=== PATIENT | female | born 1950 | race Caucasian/White ===

== ENCOUNTER 2022-02-27 07:54 | Observation (INO) | payer MEDICARE, BC, SELFPAY ==
[2022-02-27 08:00] VITALS: BP 100/72; PULSE 58; RESP 16; TEMP 36.1; O2SAT 97
--- NOTE | 2022-02-27 08:50 | DI.ECHO.S_ITS ---
[facility]---------+ [facility] +---------+ : : [address] : [address] : : : : [id number] : : : : Phone: [phone]+ Echocardiogram Report + + :Name: EMMETT BRIONES Study Date: 02/27/2022 Height: 60 in : :[facility] ReadingLocation: Weight: 240 lb : : Gender: Female BSA: 2.0 m2 : :: 1950 Age: 71 yrs BP: 108/72 mmHg: :Reason For Study: DYSPNEA ON EXERTION, CHG : :Ordering Physician: NATALY, : :MAYRA GOODMAN Performed By: Nicol Meneses : :Referring: MAYRA INGRAM MD : + + Interpretation Summary The ejection fraction is estimated to be 60-65%. Diastolic parameters suggest probable normal left ventricular diastolic function and normal filling pressures. The right ventricle is normal in size and function. There is mild mitral regurgitation. There is mild to moderate tricuspid regurgitation. PASP is approximately 35 to 40 mmHg. Procedure: A two-dimensional transthoracic echocardiogram with color flow and Doppler was performed. The study quality was technically adequate. There is no prior echocardiogram noted for this patient. The patient was in sinus bradycardia with heart rates between 50-62 bpm during the exam. Left Ventricle: The left ventricle is normal in size and wall thickness. The ejection fraction is estimated to be 60-65%. Diastolic parameters suggest probable normal left ventricular diastolic function and normal filling pressures. Right Ventricle: The right ventricle is normal in size and function. Atria: The left atrial size is normal. Right atrial size is normal. There is no Doppler evidence for an interatrial shunt. Mitral Valve: The mitral valve leaflets are mildly calcified. There is mild mitral annular calcification. There is mild mitral regurgitation. Aortic Valve: The aortic valve is not well visualized. There is no aortic valve stenosis. There is trace aortic regurgitation. Tricuspid Valve: The tricuspid valve leaflets are thin and pliable. There is mild to moderate tricuspid regurgitation. PASP is approximately 35 to 40 mmHg. Pulmonic Valve: The pulmonic valve is not well seen, but is grossly normal. There is trace pulmonic regurgitation. Great Vessels: The aortic root is normal size. The dimensions of the ascending aorta are normal. The IVC is dilated (diameter is greater than 2.1 cm) and it collapses less than 50% with a sniff. This suggests a high right atrial pressure of 15 mm Hg. Pericardium/ Pleura There is no pericardial effusion. There is no pleural effusion. MMode/2D Measurements & Calculations LVIDd: 5.1 cm LVOT diam: 2.0 cm LVIDs: 3.3 cm Ao root diam: 3.1 cm FS: 34.3 % asc Aorta Diam: 3.6 cm IVSd: 0.65 cm Ao Arch Diam (Prox Trans): 3.2 cm LVPWd: 0.70 cm LV mena. diameter/BSA (cm/m^2): 2.5 LV sys. diameter/BSA (cm/m^2): 1.7 LA A2 area: 22.3 cm2 RA long axis: 5.3 cm LA A4 area: 17.3 cm2 RA area: 17.7 cm2 LA length (vol): 5.7 cm RA vol: 50.1 ml LA vol: 57.5 ml RA : 24.8 ml/m2 LA vol index: 28.5 ml/m2 IVC diam: 2.4 cm RVD1 (basal): 4.1 cm RVD2 (mid): 2.9 cm TAPSE: 2.2 cm Doppler Measurements & Calculations Ao V2 max: 155.8 cm/sec LVOT Max Bang: 100.0 cm/sec Ao V2 mean: 105.8 cm/sec LV V1 max P.0 mmHg Ao max P.7 mmHg LV V1 VTI: 24.0 cm Ao mean P.1 mmHg DON(I,D): 1.8 cm2 Ao V2 VTI: 39.8 cm DON(V,D): 1.9 cm2 sev ratio: 0.60 DON indexed to BSA (cm^2/m^2): 0.91 MV E max bang: 114.8 cm/sec TR max bang: 253.1 cm/sec MV A max bang: 96.9 cm/sec TR max P.6 mmHg MV E/A: 1.2 PA V2 max: 106.2 cm/sec Med Peak E' Bang: 9.3 cm/sec PA V2 mean: 74.0 cm/sec E/E' med: 12.3 PA mean P.5 mmHg Lat Peak E' Bang: 7.6 cm/sec E/E' lat: 15.1 E/e' average: 13.7 MV dec time: 0.27 sec SVLVOT): 72.9 ml Reading Physician:12:20 PM
[2022-02-27 09:23] LABS: Magnesium 1.6 mg/dL (1.6-2.3)
[2022-02-27 09:36] LABS: Troponin I < 0.012 ng/mL (0.01-0.034)
[2022-02-27 11:11] VITALS: BMI 40.4
[2022-02-27 12:00] VITALS: BP 155/87; PULSE 55; RESP 18; TEMP 35.9; O2SAT 95
--- NOTE | 2022-02-27 12:39 | PC.NURSE ---
Addendum entered by Sandrita Antunez R.N. 02/27/22 15:31: Note written below is wrong. Patient is not discharging. Please ignore. Patients medication list is updated and current. She has a butran patch on her upper back that is 7.5mcg/hr, this is good until tuesday and will then be changed. Given tramadol for complaints of soar legs, this has been helpful. She is resting comfortably and a one person stand by assist to the bathroom. Tele in place. Addendum entered by Sandrita Antunez R.N. 02/27/22 14:31: Patient discharged to home, iv taken out and picked patient up. Original Note: Assess- Patient is alert and oriented x3, she denies pain. Patient is on room air and states that she gets sob only when up moving around and ambulating and then lying back down. Her lung sounds are clear, and she is on room air. Resting comfortably and ate well at lunch.
[2022-02-27] MEDS: SERTRALINE 50 MG TABLET 100 MG PO (13:23)
[2022-02-27] MEDS: TRAMADOL 50 MG TABLET PO (13:23)
--- NOTE | 2022-02-27 14:11 | P.HP_ITS ---
History of Present Illness History of Present Illness Date Patient Seen: 02/27/22 Chief complaint: Dyspnea on exertion, early CHF Narrative: Patient is a 71-year-old female with underlying diabetes mellitus type 2, on oral glipizide, asthma, chronic anticoagulation for remote DVT/PE, atrial fibrillation, obstructive sleep apnea which she reports is mild and does not require CPAP, hypertension, GERD, anxiety and depression presented to an outside hospital emergency department yesterday complaining of worsening shortness of breaths. The patient states that over the past several weeks she has had progressive difficulty with dyspnea on exertion. Specifically she reports that she will be able to walk around throughout the house and perform a task but when she gets back and sits down she becomes significantly short of breath. She will get some pressure in the chest but no chest pain. No associated lightheadedness, nausea, vomiting. She denies any previous history of cardiac issues. She reports a history of asthma and note she did have pulmonary function testing performed approximately 1 year ago. She cannot tell me the results of that. In the records that were sent over from [facility], there is report of pulmonary fibrosis. Patient denies any knowledge of that diagnosis. She also states she was told by the outside hospital she has congestive heart failure but does not carry a prior diagnosis. She has not had any significant fever, chills, cough, or other respiratory symptoms. She did have COVID in the spring of 2020. She has been vaccinated x2 with Moderna, but no boosters. She has not had any residual symptoms related to her prior COVID infection. She does have cardiac risk factors inclusive of diabetes mellitus type 2, hypertension, and former tobacco abuse as well as obesity. She has recently have been attempting to lose weight and notes she has had 16 lb intentional weight loss. She does report a bit better than she did in the emergency department yesterday. There she received breathing treatments and dexamethasone. She reports she has an albuterol inhaler at home but does not use it as it is ineffective for her symptoms. Patient History Medical History (Updated 02/27/22 @ 09:44 by Sandrita Antunez RN) Afib Asthma Bradycardia FH: total knee replacement HTN (hypertension) Comment: Atrial fibrillation Chronic anticoagulation with warfarin Remote history of right lower extremity DVT and PE, unprovoked by verbal report Obstructive sleep apnea and not prescribed CPAP Hypertension GERD Anxiety/depression Asthma Class 3 obesity As noted she specifically denies any cardiac history or known diagnosis of pulmonary fibrosis Family & Social History Family History (Updated 02/27/22 @ 14:18 by Rosalva York MD) Mother Congestive heart failure Diabetes mellitus Father Suicide Son Suicide Social History: household members family Prior Living Arrangements House Patient reports tobacco use for 2 years, 2 and half packs of cigarettes daily. She does not drink any alcohol. She lives in [place] with her daughter and son-in-law. Safety & Behavioral: Feels Safe in Current Yes Environment Been Physically Hurt or No Threatened By a Person Tobacco & Substance use: Tobacco type cigars Smoking Status Former smoker alcohol intake never Substance Use Type does not use Meds Home Medications and Allergies Home Medications Medication Instructions Recorded Confirmed Type albuterol sulfate 90 mcg/actuation 2 puff inhalation Q6H PRN Wheezing 02/27/22 02/27/22 History aerosol inhaler aspirin 81 mg tablet,delayed 81 mg PO DAILY 02/27/22 02/27/22 History release buprenorphine 7.5 mcg/hour weekly 1 patch transdermal QWEEK 02/27/22 02/27/22 History transdermal patch (Butrans) cholecalciferol (vitamin D3) 50 50 mcg PO DAILY 02/27/22 02/27/22 History mcg (2,000 unit) capsule clobetasol 0.05 % topical cream 1 applic topical BID 02/27/22 02/27/22 History ferrous sulfate 325 mg (65 mg 325 mg PO DAILY 02/27/22 02/27/22 History iron) tablet gabapentin 300 mg tablet 300 mg PO DAILY 02/27/22 02/27/22 History gabapentin 600 mg tablet 600 mg PO BID 02/27/22 02/27/22 History glipizide 5 mg tablet, extended 5 mg PO DAILY 02/27/22 02/27/22 History release 24 hr montelukast 10 mg tablet 15 mg PO DAILY 02/27/22 02/27/22 History nitroglycerin 0.4 mg sublingual 0.4 mg sublingual Q5M PRN angina 02/27/22 02/27/22 History tablet pantoprazole 40 mg tablet,delayed 40 mg PO BID 02/27/22 02/27/22 History release rosuvastatin 20 mg tablet (Crestor) 20 mg PO DAILY 02/27/22 02/27/22 History sertraline 100 mg tablet 100 mg PO DAILY 02/27/22 02/27/22 History sotalol 80 mg tablet 40 mg PO BID 02/27/22 02/27/22 History tramadol 50 mg tablet 50 mg PO DAILY PRN Pain, Moderate 02/27/22 02/27/22 History trazodone 50 mg tablet 75 mg PO BEDTIME 02/27/22 02/27/22 History warfarin 2.5 mg tablet 2.5 mg PO DAILY 02/27/22 02/27/22 History Allergies Allergy/AdvReac Type Severity Reaction Status Date / Time tolmetin AdvReac Verified 02/27/22 12:47 Review of Systems Review of Systems Narrative: All other systems were reviewed negative Exam Vital Signs (past 8 hours): - 02/27/22 08:00 02/27/22 12:00 Temperature 97.0 F L 96.6 F L Pulse Rate 58 L 55 L Respiratory Rate 16 18 Blood Pressure 100/72 155/87 H Pulse Oximetry 97 95 Oxygen Flow Rate 0 0 Oxygen Flow Rate 0 Narrative Exam Narrative: GEN: Middle-aged female, pleasant, Alert and oriented x3, no acute distress HEENT: Normocephalic, face symmetric, pupils equal round reactive to light, extraocular movements intact, sclerae anicteric, conjunctiva clear, nares patent, oropharynx reveals an intact soft and hard palate with moist mucous membranes, dentition is fair NECK: Supple, no lymphadenopathy, thyroid without enlargement or nodularity, carotids no bruits CHEST: Respiratory excursions symmetric, clear to auscultation bilaterally CV: Regular rate and rhythm, no murmurs, rubs, gallops, PMI cannot be palpated ABD: Soft, obese, nontender, nondistended, bowel sounds present in all 4 quadrants, body habitus limits exam EXTR: Warm, well perfused, no clubbing/cyanosis/edema SKIN: Warm and dry, without rash NEURO: Alert and oriented x3, cranial nerves 2 through 12 are intact and symmetric bilaterally, motor strength 5/5 throughout, sensation intact throughout PSYCH: Mood and affect is within normal limits, judgment and insight are appropriate Objective ECG Impression: Not seen by me, per report from outside hospital, this revealed a sinus bradycardia with no acute ST or T-wave changes Imaging Chest x-ray: Radiologist's impression: Per outside report, x-ray portable was done with no acute cardiopulmonary process. Specifically they did not comment on any of fibrosis or pulmonary edema. Labs Labs: Laboratory Results - last 24 hr 02/27/22 09:07 Magnesium 1.6 Troponin I < 0.012 laboratories performed at outside hospital reveals white blood cell count of 6.2, hemoglobin 13.1, hematocrit 40.8, platelets 230. Sodium was 143, potassium 4.3, chloride 107, bicarb 31, BUN 20, creatinine 1.75, glucose 88. Albumin was 3.3. LFTs were within normal limits with the exception of 1 which was mildly low at 11 it is unclear if it was the AST or ALT as the pH was cut off. Influenza A/B, RSV, COVID were all negative. TSH was normal at 2.64. BNP 807. INR was 3.7. Assessment & Plan Assessment & Plan narrative: 1. Dyspnea on exertion Unclear etiology. Pt reports a history of asthma but not pulmonary fibrosis. CXR was negative, specifically no evidence of fibrosis/CHF. No infiltrate. No wheezing on exam. Pt reports she had PFTs done about a year ago. She is uncertain as to the results. Will get records from [facility] (PFTs, CT if done). Negative dimer, no concern for PE. INR supratherapeutic. If no CT at prior hospital, will obtain one. Additionally, may need a nuclear stress test d/t risk factors for CAD (HTN, Dm2, obesity, former smoker). 2. SOLOMON versus CKD Creatinine 1.75. Unknown baseline. Will follow. Appears euvolemic presently. 3. Supratherapeutic INR in the setting of chronic anticoagulation for remote thromboembolic disease INR 3.7 at outside hospital. Will hold coumadin today. Recheck INR in am. 4. Reported paroxysmal atrial fibrillation She is in sinus rhythm by exam. She is on sotalol on an outpatient basis which is likely indicative of underlying arrhythmia, specifically AFib. Will monitor. 5. Diabetes mellitus type 2, controlled with glipizide Blood sugar was 80 on outside labs. Will not do fingersticks routinely. Will place on controlled carb diet. 6. Hypertension Patient does not have any antihypertensive therapy listed in her home medications. Uncertain if hypertension is an accurate diagnosis or not. Patient tells me she is unsure of what all she takes, what diagnoses she carries. 7. Asthma Patient tells me she did not have asthma as a child. She does have Flovent but states she does not use it regularly. She believes it was prescribed for allergies. Again will attempt to get results from previous pulmonary function testing. 8. Obstructive sleep apnea Patient reports she was told it was mild and she does not require CPAP 9. Class 3 obesity BMI is 40.4. She has been working on weight loss and reports recently decreasing her weight by 16 lb. Code status DNR per patient. She states her daughter will not agree with her decision. However, patient does not feel her life should be extended in the event of a code setting given her many medical issues. Prophylaxis Supratherapeutic INR Disposition Await getting records from [facility]. Patient may need a chest CT and/or nuclear stress test before discharge. Time Spent With Patient Critical Care time: I spent a total of [] minutes of critical care time on this patient's care today; this time is exclusive of procedural time.
[2022-02-27 16:22] VITALS: BP 132/71; PULSE 64; RESP 17; TEMP 36.3; O2SAT 95
[2022-02-27] MEDS: MAGNESIUM CHLORIDE 64 MG TABLET 128 MG PO (16:49)
[2022-02-27 19:00] VITALS: O2SAT 96
[2022-02-27 20:15] VITALS: BP 138/76; PULSE 58; RESP 18; TEMP 36.4; O2SAT 95
[2022-02-27] MEDS: ATORVASTATIN 20 MG TABLET 40 MG PO (20:34)
[2022-02-27] MEDS: SOTALOL 80 MG TABLET 40 MG PO (20:35)
[2022-02-27] MEDS: diphenhydrAMINE 25 MG TABLET 50 MG PO (20:36)
[2022-02-27] MEDS: PANTOPRAZOLE DR 40 MG TABLET PO (20:36)
[2022-02-27] MEDS: GABAPENTIN 600 MG TABLET PO (20:36)
[2022-02-27] MEDS: TRAZODONE 50 MG TABLET 75 MG PO (20:37)
[2022-02-28 04:00] VITALS: BP 160/88; PULSE 47; RESP 16; TEMP 36.2; O2SAT 98
[2022-02-28 07:37] LABS: Add Manual Diff / Slide Review NO; Basophils Absolute Auto 0 /uL (0-100); Basophils Percent Auto 0.2 % (0-2); Eosinophils Absolute Auto 100 /uL (0-450); Eosinophils Percent Auto 0.7 % (2-4); Hematocrit 37.6 % (36-46); Hemoglobin 12.3 g/dL (12.0-16.0); Lymphocytes Absolute Auto 2200 /uL (1100-4500); Mean Corpuscular HGB Conc 32.8 % (30-36); Mean Corpuscular Hemoglobin 29.5 PG (26-34); Mean Corpuscular Volume 90.1 fL (80-100); Monocytes Absolute Auto 400 /uL (0-900); Monocytes Percent Auto 5.9 % (3-14); Neutrophils Absolute Auto 4900 /uL (1500-7000); Neutrophils Percent Auto 64.2 % (50-75); Platelet Count 216 X10^3/uL (150-400); Red Blood Cell Count 4.17 X10^6/uL (4.0-5.2); White Blood Cell Count 7.6 X10^3/uL (4.5-11.0)
[2022-02-28 07:43] LABS: INR 3.7 (0.9-1.3); Prothrombin Time 43.1 SECONDS (10.1-12.7)
[2022-02-28 07:48] LABS: Appearance Urine UA CLEAR; Bilirubin Urine UA NEGATIVE (NEGATIVE); Color Urine UA YELLOW; Glucose Urine UA NEGATIVE (Negative); Ketones Urine UA NEGATIVE (NEGATIVE); Leukocyte Esterase Urine UA 2+ (NEGATIVE); Nitrite Urine UA NEGATIVE (Negative); Occult Blood Urine UA 1+ (Negative); Protein Urine UA TRACE (Negative); Urobilinogen Urine UA 0.2 E.U./dL (0.2)
[2022-02-28 07:51] LABS: Alanine Aminotransferase 13 IU/L (<35); Albumin 3.7 g/dL (3.5-5.0); Albumin Globulin Ratio 1.3 (1.0-2.8); Alkaline Phosphatase 56 U/L (38-126); Aspartate Aminotransferase 19 IU/L (14-36); BUN Creatinine Ratio 18.6 (6-22); Bilirubin Total 0.4 mg/dL (0.2-1.3); Blood Urea Nitrogen 27 mg/dL (7-17); Calcium 9.1 mg/dL (8.4-10.2); Carbon Dioxide 30 mmol/L (22-32); Chloride 101 mmol/L (98-107); Cholesterol 145 mg/dL (140-199); Estimated Glomerular Filt Rate 39 mL/min (>60); Globulin 2.8 g/dL (1.7-4.1); Glucose 159 mg/dL (80-110); HDL Cholesterol 46 mg/dL (40-60); HEMOLYSIS < 15 (0-50); LDL Cholesterol Calculated 75 mg/dL (<100); Potassium 3.8 mmol/L (3.4-5.1); Sodium 136 mmol/L (137-145); Total Protein 6.5 g/dL (6.3-8.2); Triglycerides 119 mg/dL (35-150)
[2022-02-28 08:00] VITALS: BP 115/72; PULSE 41; RESP 17; TEMP 36.6; O2SAT 96
[2022-02-28] MEDS: ASPIRIN EC 81 MG TABLET PO (08:12)
[2022-02-28] MEDS: MONTELUKAST 10 MG TABLET 15 MG PO (08:12)
[2022-02-28] MEDS: PANTOPRAZOLE DR 40 MG TABLET PO (08:14)
[2022-02-28] MEDS: GABAPENTIN 600 MG TABLET PO (08:14)
[2022-02-28] MEDS: CHOLECALCIFEROL (VITAMIN D3) 1,000 UNIT TABLET 2000 UNIT PO (08:14)
[2022-02-28] MEDS: FERROUS SULFATE 325 MG TABLET PO (08:14)
[2022-02-28] MEDS: SERTRALINE 50 MG TABLET 100 MG PO (08:14)
[2022-02-28 08:23] LABS: Bacteria Urine Many (>30); Culture Indicated Urine Specimen Cultured; RBC Urine 1-5/HPF (0-5/HPF); Squamous Epithelial Cell Urine 1-5 /HPF (0-5/HPF); WBC Urine 10-30/HPF (0-5/HPF); pH Urine UA 5.5 (4.5-8.0)
[2022-02-28 08:44] LABS: Thyroid Stimulating Hormone 0.677 uIU/mL (0.47-4.68)
[2022-02-28] MEDS: cephALEXin 250 MG CAPSULE 500 MG PO (11:22)
--- NOTE | 2022-02-28 12:14 | PC.NURSE ---
Discharge Note Patient A&O, VSS, RA, no complaints of pain/discomfort. Patient able to ambulate successfully through out unit without shortness of breath. Discharge packet reviewed with patient, all questions/concerns addressed. Prescription for antibiotics given to patient and reminded to fill at preferred pharmacy. PIV/TELE discontinued. Patient able to dress self and pack all belongings. Patient taken down via wheelchair to POV.
--- NOTE | 2022-02-28 15:17 | CM.DANOTE ---
DCP/Assessment: Reviewed chart. Patient is a 71yr old female admitted to I.. with possible CHF. PCP is Dr. Shah. Primary payor is 1)Medicare 2)[facility]. Attempted to meet with patient this afternoon but she has already discharged. RN reports that patient resides with family and was I in ADL's. RN reports patient did not have any d/c planning needs. P: Home today. KJS Discharge Planning/Care Management CM Discharge Assessment Start: 02/28/22 15:11 Freq: Status: Discharge Protocol: Document 02/28/22 15:12 KJS (Rec: 02/28/22 15:17 KJS [id number]) Discharge Planning Assessment Assigned [employer] Technologist JUNIOR Avina Contact Information Jaimee Seay (daughter) ph# [phone] Advance Directives? No History Provided By Patient,Medical Record Prior Living Arrangements House Household Members family Independent with ADL's Yes: Per nursing Is patient alert and oriented? Yes: Per nursing Caregiver for Another No Barriers to Discharge No Discharge Plan Home Transportation Arrangement Family to provide transport. Referrals Initiated None needed Review Status In Process Next Review Type Continued Stay Review
--- NOTE | 2022-02-28 18:55 | P.DS_ITS ---
History of Present Illness History of Present Illness Chief complaint: Dyspnea on exertion, early CHF Narrative: Patient is a 71-year-old female with underlying diabetes mellitus type 2, on oral glipizide, asthma, chronic anticoagulation for remote DVT/PE, atrial fibrillation, obstructive sleep apnea which she reports is mild and does not require CPAP, hypertension, GERD, anxiety and depression presented to an outside hospital emergency department yesterday complaining of worsening shortness of breaths. The patient states that over the past several weeks she has had progressive difficulty with dyspnea on exertion. Specifically she reports that she will be able to walk around throughout the house and perform a task but when she gets back and sits down she becomes significantly short of breath. She will get some pressure in the chest but no chest pain. No associated lightheadedness, nausea, vomiting. She denies any previous history of cardiac issues. She reports a history of asthma and note she did have pulmonary function testing performed approximately 1 year ago. She cannot tell me the res ults of that. In the records that were sent over from [facility], there is report of pulmonary fibrosis. Patient denies any knowledge of that diagnosis. She also states she was told by the outside hospital she has congestive heart failure but does not carry a prior diagnosis. She has not had any significant fever, chills, cough, or other respiratory symptoms. She did have COVID in the spring. She has been vaccinated x2 with Moderna, but no boosters. She has not had any residual symptoms related to her prior COVID infection. She does have cardiac risk factors inclusive of diabetes mellitus type 2, hypertension, and former tobacco abuse as well as obesity. She has recently have been attempting to lose weight and notes she has had 16 lb intentional weight loss. She does report a bit better than she did in the emergency department yesterday. There she received breathing treatments and dexamethasone. She reports she has an albuterol inhaler at home but does not use it as it is ineffective for her symptoms. Discharge Providers Provider Date of admission: 02/27/22 07:54 Discharge Date: 02/28/22 Primary care physician: Artis Shah MD Consults: 02/27/22 08:51 Consult to Discharge Planning Routine Comment: Discharge provider: Rosalva York MD Summary Hospital Course Discharge Diagnosis: Dyspnea on exertion, likely multifactorial from untreated obstructive sleep apnea and possible asthma SOLOMON versus CKD, improving with a creatinine of 1.45 at discharge Supratherapeutic INR in the setting of chronic anticoagulation for remote thromboembolic disease Paroxysmal atrial fibrillation Diabetes mellitus type 2 Hypertension Asthma Obstructive sleep apnea Class 3 obesity Mild facial/periorbital erythema, felt to be allergic in nature Hospital Course: Patient was transferred from outside hospital with dyspnea on exertion of unclear etiology. She had had a negative chest x-ray. There was concern for potential congestive heart failure. She was transferred to our facility for further evaluation. Upon arrival to our facility patient was feeling symptomatically improved. We were able to review old records inclusive of chest CTs, pulmonary function testing, previous echocardiogram, and sleep study. It w as clear patient is supposed to be on CPAP for severe obstructive sleep apnea, but has not been treated. Furthermore she is supposed to be on Flovent for her asthma but was not taking it regularly. Echocardiogram was obtained which revealed no significant change compared to prior echocardiogram. No evidence of congestive heart failure. Previous chest CTs did reveal some mild fibrosis in the lung bases, unchanged between February of 2021 and June of 2021. She does not carry a diagnosis of pulmonary fibrosis at this time. She did develop some increasing facial erythema and tearing on the evening of admission. She was given low-dose IV Benadryl and artificial tears. On the morning following admission, patient was feeling significantly improved. She had some persistent mild facial erythema, but no evidence of cellulitis or infection. Suspect this is allergic in origin. At the time of discharge, patient is in stable condition. Saturations were within normal on room air. She was able to ambulate without any dyspnea. She is encouraged to contact her primary care provider to obtain a follow-up sleep study as her previous sleep study was performed in 2019 and she would not be a ble to obtain CPAP based on her old study. Additionally, she is advised to ask her primary care provider to refer her for a nuclear stress test as her dyspnea with exertion be an anginal equivalent. She is particularly at risk given her smoking history, obesity, diabetes. Exam Vital Signs (past 8 hours): Oxygen Delivery Method Room Air Oxygen Flow Rate 0 Narrative Exam Narrative: GEN:? Middle-aged female, pleasant, Alert and oriented x3, no acute distress HEENT:? Normocephalic, face symmetric CHEST:? Respiratory excursions symmetric, clear to auscultation bilaterally CV:? Regular rate and rhythm, no murmurs, rubs, gallops, PMI cannot be palpated ABD:? Soft, obese, nontender, nondistended, bowel sounds present in all 4 quadrants, body habitus limits exam EXTR:? Warm, well perfused, no clubbing/cyanosis/edema SKIN:? Warm and dry, without rash Objective Labs Result Diagrams: 02/28/22 07:14 02/28/22 07:14 Labs: Laboratory Results - last 24 hr 02/28/22 02/28/22 02/28/22 05:00 07:14 07:14 WBC 7.6 RBC 4.17 Hgb 12.3 Hct 37.6 MCV 90.1 MCH 29.5 MCHC 32.8 RDW 14.0 Plt Count 216 Neut % (Auto) 64.2 Lymph % (Auto) 29.0 Carson % (Auto) 5.9 Eos % (Auto) 0.7 L Baso % (Auto) 0.2 Neut # (Auto) 4900 Lymph # (Auto) 2200 Carson # (Auto) 400 Eos # (Auto) 100 Baso # (Auto) 0 PT 43.1 H INR 3.7 H Sodium Potassium Chloride Carbon Dioxide BUN Creatinine Estimated GFR BUN/Creatinine Ratio Glucose Calcium Total Bilirubin AST ALT Alkaline Phosphatase Total Protein Albumin Globulin Albumin/Globulin Ratio Triglycerides Cholesterol LDL Cholesterol, Calc HDL Cholesterol TSH Urine Color Yellow Urine Appearance Clear Urine pH 5.5 Ur Specific [place] 1.020 Urine Protein Trace H Urine Glucose (UA) Negative Urine Ketones Negative Urine Occult Blood 1+ H Urine Nitrate Negative Urine Bilirubin Negative Urine Urobilinogen 0.2 Ur Leukocyte Esterase 2+ H Urine RBC 1-5/hpf Urine WBC 10-30/hpf H Ur Squamous Epith Cells 1-5 /hpf Urine Bacteria Many (>30) H Ur Culture Indicated? Specimen cultured 02/28/22 02/28/22 07:14 07:14 WBC RBC Hgb Hct MCV MCH MCHC RDW Plt Count Neut % (Auto) Lymph % (Auto) Carson % (Auto) Eos % (Auto) Baso % (Auto) Neut # (Auto) Lymph # (Auto) Carson # (Auto) Eos # (Auto) Baso # (Auto) PT INR Sodium 136 L Potassium 3.8 Chloride 101 Carbon Dioxide 30 BUN 27 H Creatinine 1.45 H Estimated GFR 39 L BUN/Creatinine Ratio 18.6 Glucose 159 H Calcium 9.1 Total Bilirubin 0.4 AST 19 ALT 13 Alkaline Phosphatase 56 Total Protein 6.5 Albumin 3.7 Globulin 2.8 Albumin/Globulin Ratio 1.3 Triglycerides 119 Cholesterol 145 LDL Cholesterol, Calc 75 HDL Cholesterol 46 TSH 0.677 Urine Color Urine Appearance Urine pH Ur Specific [place] Urine Protein Urine Glucose (UA) Urine Ketones Urine Occult Blood Urine Nitrate Urine Bilirubin Urine Urobilinogen Ur Leukocyte Esterase Urine RBC Urine WBC Ur Squamous Epith Cells Urine Bacteria Ur Culture Indicated? [facility], [facility] Medical History (Updated 02/27/22 @ 09:44 by Sandrita Antunez RN) Afib Asthma Bradycardia FH: total knee replacement HTN (hypertension) Family History (Updated 02/27/22 @ 14:18 by Rosalva York MD) Mother Congestive heart failure Diabetes mellitus Father Suicide Son Suicide Social History household members: family Smoking Status: Former smoker alcohol intake: never Discharge Plan Discharge Plan Patient Disposition: Home Provider Discharge Comment: Please contact your PCP tomorrow regarding the need for a new sleep study for your sleep apnea as the prior study showed you have severe sleep apnea and should be on CPAP; please also f/u with your PCP to get a nuclear stress test scheduled to rule out cardiac reasons for your shortness of breath. As discussed, you do NOT have a formal diagnosis of pulmonary fibrosis or congestive heart failure. You may take benadryl sparingly for your facial redness. Restart your flovent and take regularly as discussed. Discharge orders & Medications Prescriptions: New cephalexin 250 mg Capsule 500 mg PO TID Qty: 30 0RF Continued aspirin 81 mg Tablet,Delayed Release (Dr/Ec) 81 mg PO DAILY albuterol sulfate 90 mcg/actuation Hfa Aerosol Inhaler 2 puff INHALATION Q6H PRN (Reason: Wheezing) cholecalciferol (vitamin D3) 50 mcg (2,000 unit) Capsule 50 mcg PO DAILY clobetasol 0.05 % Cream 1 applic TOPICAL BID ferrous sulfate 325 mg (65 mg iron) Tablet 325 mg PO DAILY Rx Instructions: with breakfast gabapentin 300 mg Tablet 300 mg PO DAILY Rx Instructions: takes 300mg at lunch time gabapentin 600 mg Tablet 600 mg PO BID Rx Instructions: takes 600mg in the am and 600mg in the pm trazodone 50 mg Tablet 50 mg PO BEDTIME sertraline 100 mg Tablet 150 mg PO DAILY glipizide 5 mg Tablet Extended Release 24hr 5 mg PO DAILY warfarin 2.5 mg Tablet 2.5 mg PO DAILY tramadol 50 mg Tablet 50 mg PO DAILY PRN (Reason: Pain, Moderate) pantoprazole 40 mg Tablet,Delayed Release (Dr/Ec) 40 mg PO BID nitroglycerin 0.4 mg Tablet, Sublingual 0.4 mg SUBLINGUAL Q5M PRN (Reason: angina) Rx Instructions: do not exceed 3 doses per episode montelukast 10 mg Tablet 15 mg PO DAILY sotalol 80 mg Tablet 40 mg PO BID rosuvastatin [Crestor] 20 mg Tablet 20 mg PO DAILY Rx Instructions: takes in the evening buprenorphine [Butrans] 7.5 mcg/hour Patch Weekly 1 patch TRANSDERMAL QWEEK Rx Instructions: change every tuesday Medication counseling provided by Pharmacist: No Follow up/Referrals: Artis Shah MD [Primary Care Provider] - Diet/Activity/Treatments Diet: Carb-consistent/Diabetic Activity: As tolerated Oxygen: N/A Other treatments: Please get a follow-up INR this week (antibiotics can interact with your coumadin and make your blood too thin) Visit Report/Discharge Packet Instructions: Sleep Apnea, Cardiac Stress Test Discharge Data Primary Care Provider: Artis Shah Attending Provider: Caryn Quiñones
== END 2022-02-28 12:15 | disposition home or self-care (01) ==
PROVIDERS: Family Medicine; Internal Medicine; Admitting Provider Nurse Practitioner Family; PCP Family Medicine; Referring Provider Emergency Medicine Emergency Medical Services; Visit Provider Nurse Practitioner Family
DX: R06.09 Other forms of dyspnea (principal); J45.909 Unspecified asthma, uncomplicated; I10 Essential (primary) hypertension; L53.9 Erythematous condition, unspecified; I48.0 Paroxysmal atrial fibrillation; E11.9 Type 2 diabetes mellitus without complications; G47.33 Obstructive sleep apnea (adult) (pediatric); K21.9 Gastro-esophageal reflux disease without esophagitis; F41.9 Anxiety disorder, unspecified; F32.A Depression, unspecified; Z87.891 Personal history of nicotine dependence; Z79.01 Long term (current) use of anticoagulants; Z79.84 Long term (current) use of oral hypoglycemic drugs; Z86.718 Personal history of other venous thrombosis and embolism; Z86.711 Personal history of pulmonary embolism; E66.01 Morbid (severe) obesity due to excess calories; Z68.41 Body mass index [BMI] 40.0-44.9, adult; Z66 Do not resuscitate
CPT/HCPCS: 36415; 80053; 80061; 81001; 82962; 83735; 84443; 84484; 85025; 85610; 87077; 87086; 87186; 93306; G0378; G0379